=== PATIENT | male | born 1980 | race African-American/Black ===

== ENCOUNTER 2020-02-23 22:48 | Inpatient (IN) | payer BC, OTHER ==
--- NOTE | 2020-02-24 01:19 | ER Document Report ---
ED Medical Screen (RME) - General Chief Complaint: Chest Pain Stated Complaint: CHEST PAIN Time Seen by Provider: 02/24/20 01:18 Information source: Patient Notes: Patient presents complaining of anterior chest pain that started around 6 PM today. Patient denies any cough, shortness of breath, nausea or vomiting. Patient denies any dizziness. Patient states sitting up changes the intensity of his pain. Patient does report recent long distance travel to [place]. Patient without any chronic underlying medical problems. I have greeted and performed a rapid initial assessment of this patient. A comprehensive ED assessment and evaluation of the patient, analysis of test results and completion of the medical decision making process will be conducted by additional ED providers. TRAVEL OUTSIDE OF THE [place] IN LAST 30 DAYS: No - Related Data Allergies/Adverse Reactions: Stock Ragweed Pollen Mixture * Allergy (Verified 02/24/20 00:12) Past Medical History - Social History Frequency of alcohol use: None Drug Abuse: None - Immunizations Immunizations up to date: Yes Hx Diphtheria, Pertussis, Tetanus Vaccination: Yes Physical Exam - Vital signs Vitals: Temp Pulse Resp BP Pulse Ox 98.6 F 97 14 162/88 H 97 02/23/20 23:22 02/23/20 23:22 02/23/20 23:22 02/23/20 23:22 02/23/20 23:22 - Respiratory Respiratory status: No respiratory distress Chest status: Tender Breath sounds: Normal Chest palpation: Normal. No: Tender - Cardiovascular Rhythm: Regular Heart sounds: S1 appreciated, S2 appreciated Course - Vital Signs Vital signs: Temp Pulse Resp BP Pulse Ox 98.6 F 97 14 162/88 H 97 02/23/20 23:22 02/23/20 23:22 02/23/20 23:22 02/23/20 23:22 02/23/20 23:22
--- NOTE | 2020-02-24 03:03 | RADIOLOGY REPORT (SQ) ---
EXAM DESCRIPTION: XR CHEST 2 VIEWS COMPLETED DATE/TME: 02/24/2020 00:00 CLINICAL HISTORY: 39 years, Male, PAIN COMPARISON: None. NUMBER OF VIEWS: 2 TECHNIQUE: 2 views of the chest LIMITATIONS: None. FINDINGS: The heart size is normal. There is a moderate to large right-sided pneumothorax, with 7.1 cm of pleural separation at the right lung apex. There is no mediastinal shift at this time. The lungs are clear. IMPRESSION: Moderate to large right-sided pneumothorax, as above copyright 2011 [employer]- All Rights Reserved
--- NOTE | 2020-02-24 03:15 | ER Document Report ---
Doctor's Note Notes: 02/24/20 03:14 I received a call from Dr. Cintron, the radiologist. Was informed that the patient had a right pneumothorax. Patient brought to room 15. Notified Dr. Hinson.
[2020-02-24 03:20] LABS: ABSOLUTE EOSINOPHILS # (AUTO) 0.2 10^3/uL (0.0-0.6); ABSOLUTE LYMPHOCYTES (AUTO) 1.5 10^3/uL (0.5-4.7); ABSOLUTE MONOCYTES (AUTO) 0.8 10^3/uL (0.1-1.4); ABSOLUTE NEUT (AUTO) 6.7 10^3/uL (1.7-8.2); BASOPHILS % (AUTO) 0.3 % (0-2); EOSINOPHILS % (AUTO) 2.5 % (0-6); HEMATOCRIT 42.2 % (37.9-51.0); HEMOGLOBIN 14.8 g/dL (13.5-17.0); LYMPHOCYTES % (AUTO) 15.9 % (13-45); MEAN CORPUSCULAR HEMOGLOBIN 32.3 pg (27.0-33.4); MEAN CORPUSCULAR VOLUME 92 fl (80-97); MONOCYTES % (AUTO) 8.3 % (3-13); PLATELET COUNT 223 10^3/uL (150-450); RED BLOOD COUNT 4.58 10^6/uL (4.35-5.55); RED CELL DISTRIBUTION WIDTH 12.5 % (11.5-14.0); TOTAL CELLS COUNTED % (AUTO) 100 %; WHITE BLOOD COUNT 9.2 10^3/uL (4.0-10.5)
[2020-02-24] MEDS ORDERED: LIDOCAINE 1%/EPINEPHRINE INJ 20 ML VIAL INJ ONE (03:24)
[2020-02-24 03:34] LABS: ALBUMIN 4.3 g/dL (3.5-5.0); ALKALINE PHOSPHATASE 59 U/L (38-126); ANION GAP 7 (5-19); ASPARTATE AMINO TRANSFERASE 30 U/L (17-59); BILIRUBIN,DIRECT 0.2 mg/dL (0.0-0.4); BILIRUBIN,TOTAL 0.7 mg/dL (0.2-1.3); BLOOD UREA NITROGEN 10 mg/dL (7-20); CALCIUM 9.4 mg/dL (8.4-10.2); CARBON DIOXIDE 28 mmol/L (22-30); CHLORIDE 106 mmol/L (98-107); GLUCOSE 99 mg/dL (75-110); POTASSIUM 4.4 mmol/L (3.6-5.0); TOTAL PROTEIN 7.5 g/dL (6.3-8.2)
--- NOTE | 2020-02-24 04:06 | ER Document Report ---
ED General - General Chief Complaint: Chest Pain Stated Complaint: CHEST PAIN Time Seen by Provider: 02/24/20 01:18 Notes: 39-year-old male no significant past medical history presents with approximately 6 hours of sudden onset persistent right second mid chest pain that started while he was walking down some stairs and feels like it is worse every time he takes a hard step. Patient denies any shortness of breath, lightheadedness, syncope, prior episodes, trauma, lower extremity edema or pain, DVT/PE/hypercoagulability history, family history, recent trauma/surgery/immobilization, cancer history, cough, hemoptysis, fever, bleeding diatheses, hepatic or renal history, drug use, exertional chest pain, cardiac history, hypertension/diabetes/hyperlipidemia TRAVEL OUTSIDE OF THE [place] IN LAST 30 DAYS: No - Related Data Allergies/Adverse Reactions: Stock Ragweed Pollen Mixture * Allergy (Verified 02/24/20 00:12) Past Medical History - General Information source: Patient - Social History Smoking Status: Current Every Day Smoker Frequency of alcohol use: None Drug Abuse: None Family History: Other - asthma - Immunizations Immunizations up to date: Yes Hx Diphtheria, Pertussis, Tetanus Vaccination: Yes Review of Systems - Review of Systems Notes: REVIEW OF SYSTEMS: CONSTITUTIONAL : Denies fever, chills, or sweats. EENT: Denies recent cold/sinus symptoms, denies throat pain CARDIOVASCULAR: + chest pain, -BESSY RESPIRATORY: Denies cough, denies shortness of breath. GASTROINTESTINAL: Denies abdominal pain, nausea/vomiting. GENITOURINARY: Denies difficulty urinating, painful urination. MUSCULOSKELETAL: Denies neck pain, back pain. SKIN: Denies rash or skin lesions. HEMATOLOGIC : Denies easy bruising or bleeding. LYMPHATIC: Denies swollen, enlarged glands. NEUROLOGICAL: Denies headache, denies change in gait. PSYCHIATRIC: Denies anxiety or stress or depression. Physical Exam - Vital signs Vitals: Temp Pulse Resp BP Pulse Ox 98.6 F 97 14 162/88 H 97 02/23/20 23:22 02/23/20 23:22 02/23/20 23:22 02/23/20 23:22 02/23/20 23:22 - Notes Notes: PHYSICAL EXAMINATION: GENERAL: Well-appearing, well-nourished tall young adult male lying comfortably in stretcher in no acute distress. HEAD: Atraumatic, normocephalic. EYES: Pupils equal round and appropriate constriction, sclera anicteric, conju nctiva are normal. ENT: nares patent, moist mucous membranes. NECK: Normal range of motion, supple without lymphadenopathy LUNGS: Clear breath sounds on left, no breath sounds on the right, normal respiratory rate and effort, speaking in full sentences HEART: Regular rate and rhythm without murmurs ABDOMEN: Soft, nontender, no guarding, no masses EXTREMITIES: Normal range of motion, no pitting or edema. No cyanosis. NEUROLOGICAL: Awake, alert, conversing appropriately, moves all extremities spontaneously. PSYCH: Normal mood, normal affect. SKIN: Warm, Dry, normal turgor, no rashes or lesions noted. Course - Re-evaluation Re-evalutation: 02/24/20 04:05 Patient with pleuritic chest pain after travel but PERC negative, absent breath sounds on right, found to have spontaneous pneumothorax on chest x-ray. This is consistent with patient's symptoms. Patient's vital signs are normal, no respiratory distress, no hemodynamic instability. Patient on monitor and on 100% nonrebreather mask. Will place a pigtail catheter on the right and consult surgery for observation. 02/24/20 06:13 Place an 8 Malaysian right chest tube without complication which patient tolerated well. Pneumothorax confirmed to be decreased on postprocedural film and catheter in place. Patient's vitals continue to be stable. Morphine ordered for pain. Discussed case with Dr. Rivas who has accepted patient to surgical floor and will be seeing patient shortly. - Vital Signs Vital signs: Temp Pulse Resp BP Pulse Ox 97.9 F 66 22 H 140/98 H 100 02/24/20 03:20 02/24/20 03:20 02/24/20 05:41 02/24/20 05:31 02/24/20 05:41 - Laboratory Result Diagrams: 02/24/20 03:01 02/24/20 03:01 - EKG Interpretation by Me Additional EKG results interpreted by me: 02/24/20 06:16 Heart rate 66, sinus rhythm, no significant ST elevations or depressions, nonspecific T wave abnormalities, QTc 407 Procedures - Chest Tube Right Time completed: 05:20 Consent obtained: Yes Chest tube pre-insertion: Sterile PPE donned, Chloraprep applied Size of Malaysian Tube (cm): 8 Anesthetic type: 1% Lidocaine w/epi mL's of anesthetic: 20 Chest tube post-insertion: Air soto heard, Sutured, Position confirmed w/ CXR, Water seal, Low intermittent suction Number of attempts: 1 Complications: No Discharge - Discharge Clinical Impression: Pneumothorax Qualifiers: Pneumothorax type: spontaneous, primary Qualified Code(s): J93.11 - Primary spontaneous pneumothorax Disposition: ADMITTED INPATIENT Admitting Provider: Surgicalist - [facility] Admitted: Surgical Floor
[2020-02-24] MEDS ORDERED: LORAZEPAM INJ 2 MG/1 ML VIAL IV ONE (04:43)
[2020-02-24] MEDS ORDERED: MORPHINE SULFATE 10 MG/ML INJ IV ONE (05:27)
--- NOTE | 2020-02-24 05:58 | RADIOLOGY REPORT (SQ) ---
EXAM DESCRIPTION: XR CHEST 1 VIEW COMPLETED DATE/TME: 02/24/2020 00:00 CLINICAL HISTORY: chest tube placement check COMPARISON: 02/24/2020 FINDINGS: Single frontal view of the chest. Tubes and lines: Interval placement of smallbore right chest tube. Cardiomediastinal silhouette: Stable Lungs: Small residual right-sided pneumothorax with significantly improved expansion and aeration of the right lung. No left-sided pneumothorax. No pleural effusion. Bones: Stable. Upper abdomen: Stable. IMPRESSION: 1. Interval placement of smallbore right-sided chest tube with significant decrease in size of now small right apical pneumothorax.
[2020-02-24] MEDS ORDERED: ONDANSETRON HCL INJ/PF 4 MG/2 ML SDV IV PRN (07:36)
--- NOTE | 2020-02-24 07:51 | PDOC H&P ---
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 The patient presented to the ER and was found to have a spontaneous pneumothorax. The patient had a small bore chest tube placed by the ER physician, which resolved his pneumothorax. Currently he denies any chest pain, shortness of breath, fevers, chills, nausea, vomiting, abdominal pain, headache, malaise, fatigue. The patient is a smoker. He denies any use of a vape pen, illegal drugs, or alcohol. This is his first occurrence of a spontaneous pneumothorax. He has no other significant medical problems. He does not take any medications at home. Past Medical History Medical History: None Past Surgical History Past Surgical History: Reports: None Social History Smoking Status: Current Every Day Smoker Frequency of Alcohol Use: None Hx Recreational Drug Use: No Hx Prescription Drug Abuse: No Family History Family History: Other - asthma Parental Family History Reviewed: Yes Children Family History Reviewed: Yes Sibling(s) Family History Reviewed.: Yes Medication/Allergy Home Medications: Ciprofloxacin HCl [Cipro 500 mg Tablet] 500 mg PO BID #20 tablet 11/05/12 No Home Medications 1 11/05/12 Cyclobenzaprine HCl [Flexeril 10 Mg Tablet] 10 mg PO TID #15 tablet 11/24/15 Oxycodone HCl/Acetaminophen [Percocet 5-325 mg Tablet] 1 - 2 tab PO ASDIR PRN #15 tablet 11/24/15 Allergies/Adverse Reactions: Stock Ragweed Pollen Mixture * Allergy (Verified 02/24/20 00:12) Review of Systems Constitutional: ABSENT: anorexia, chills, fatigue Eyes: ABSENT: visual disturbances Ears: ABSENT: hearing changes Cardiovascular: PRESENT: chest pain, dyspnea on exertion Respiratory: PRESENT: dyspnea. ABSENT: cough, hemoptysis, sputum Gastrointestinal: ABSENT: abdominal pain, bloating, dysphagia, hematemesis, hematochezia, melena, nausea, vomiting Genitourinary: ABSENT: dysuria Musculoskeletal: ABSENT: back pain Integumentary: ABSENT: lesions, pruritus, rash Neurological: ABSENT: confusion, convulsions, dizziness Psychiatric: ABSENT: anxiety, depression Endocrine: ABSENT: cold intolerance Hematologic/Lymphatic: ABSENT: easy bleeding, easy bruising Physical Exam Vital Signs: Temp Pulse Resp BP Pulse Ox 97.9 F 66 22 H 147/95 H 100 02/24/20 03:20 02/24/20 03:20 02/24/20 07:03 02/24/20 07:03 02/24/20 07:03 Intake & Output 02/23/20 02/24/20 02/25/20 06:59 06:59 06:59 Weight 98.2 kg General appearance: PRESENT: no acute distress Head exam: PRESENT: atraumatic, normocephalic Eye exam: PRESENT: EOMI, PERRLA. ABSENT: scleral icterus Mouth exam: PRESENT: moist, neck supple Neck exam: ABSENT: meningismus, tenderness, thyromegaly, tracheal deviation Respiratory exam: PRESENT: unlabored. ABSENT: tachypnea, wheezes Cardiovascular exam: ABSENT: tachycardia Vascular exam: PRESENT: normal capillary refill GI/Abdominal exam: PRESENT: soft. ABSENT: distended, firm, tenderness Rectal exam: PRESENT: deferred Extremities exam: ABSENT: clubbing Musculoskeletal exam: ABSENT: deformity Neurological exam: PRESENT: alert, awake, oriented to person, oriented to place, oriented to time, oriented to situation, CN II-XII grossly intact Psychiatric exam: ABSENT: agitated, anxious, depressed Focused psych exam: ABSENT: delusional Skin exam: ABSENT: cyanosis, erythema, jaundice Results Laboratory Results: 02/24/20 03:01 02/24/20 03:01 02/24/20 02/24/20 03:01 03:01 WBC 9.2 RBC 4.58 Hgb 14.8 Hct 42.2 MCV 92 MCH 32.3 MCHC 35.0 RDW 12.5 Plt Count 223 Seg Neutrophils % 73.0 Sodium 141.1 Potassium 4.4 Chloride 106 Carbon Dioxide 28 Anion Gap 7 BUN 10 Creatinine 1.15 Est GFR ( Amer) > 60 Glucose 99 Calcium 9.4 Total Bilirubin 0.7 AST 30 Alkaline Phosphatase 59 Total Protein 7.5 Albumin 4.3 02/24/20 03:01 Troponin I < 0.012 Impressions: Chest X-Ray 02/24/20 00:00 IMPRESSION: 1. Interval placement of smallbore right-sided chest tube with significant decrease in size of now small right apical pneumothorax. Assessment & Plan - Diagnosis (1) Spontaneous pneumothorax Is this a current diagnosis for this admission?: Yes - Time Anticipated Discharge Disposition: Home, Self Care Anticipated Discharge Timeframe: within 72 hours - Plan Summary Plan Summary: This is a 39-year-old male with a spontaneous pneumothorax. The patient presented to the emergency department, was diagnosed, and a chest tube was inserted. The patient has had reinflation of his lung after chest tube placement. He has no air leak currently in his Pleur-evac. Plan for admission to the floor, pain control, aggressive pulmonary toilet, and monitoring of his chest x-ray. Maintain chest tube to suction for now. Hopefully resolution will be seen in 48 hours, and the chest tube could be removed. Repeat chest x-ray tomorrow. Further recommendations will be made depending on the patient's clinical course.
[2020-02-24] MEDS: KETOROLAC TROMETHAMINE INJ/PF 30 MG/1 ML SDV IV SCH ×3 (08:02→21:24)
--- NOTE | 2020-02-24 09:16 | EKG REPORT ---
SEVERITY:- ABNORMAL ECG - SINUS RHYTHM NONSPECIFIC T ABNORMALITIES, ANT-LAT LEADS : Confirmed by: Juanis Baron 24-Feb-2020 09:16:09
[2020-02-24] MEDS: FAMOTIDINE 20 MG TABLET PO SCH ×2 (10:15→21:24)
[2020-02-24] MEDS: ENOXAPARIN SODIUM INJ 40 MG/0.4 ML DISP.SYRIN SUBCUT SCH (10:16)
[2020-02-25] MEDS: KETOROLAC TROMETHAMINE INJ/PF 30 MG/1 ML SDV IV SCH ×3 (05:53→21:28)
--- NOTE | 2020-02-25 09:23 | RADIOLOGY REPORT (SQ) ---
EXAM DESCRIPTION: CHEST SINGLE VIEW IMAGES COMPLETED DATE/TIME: 02/25/2020 8:27 am REASON FOR STUDY: PTX COMPARISON: None. EXAM PARAMETERS: NUMBER OF VIEWS: One view. TECHNIQUE: An AP view of the chest was obtained. RADIATION DOSE: NA LIMITATIONS: None. FINDINGS: LUNGS AND PLEURA: Unchanged right apical pneumothorax that measures 1.4 cm (measured from the edge of the lung to the undersurface of the adjacent rib). There is no consolidation or pleural effusion. MEDIASTINUM AND HILAR STRUCTURES: No mediastinal or hilar contour abnormality. HEART AND VASCULAR STRUCTURES: The cardiac silhouette and pulmonary vasculature are within normal joseph its. BONES: No acute findings. HARDWARE: Unchanged position of the catheter that projects over the right 7th intercostal space. OTHER: No other finding. IMPRESSION: Unchanged position of the catheter that projects over the right 7th intercostal space. The right apical pneumothorax is unchanged in size. TECHNICAL DOCUMENTATION: JOB ID: [id number] 2010 [employer]- All Rights Reserved Reading location - IP/workstation name: [email or web address]
--- NOTE | 2020-02-25 10:02 | PDOC PROGRESS REPORT ---
Subjective Progress Note for:: 02/25/20 Subjective:: feels well, no sob Reason For Visit: SPONTANEOUS PNEUMOTHORAX Physical Exam Vital Signs: Temp Pulse Resp BP Pulse Ox 98.0 F 94 12 137/82 H 100 02/25/20 08:00 02/25/20 08:00 02/25/20 08:00 02/25/20 08:00 02/25/20 08:00 Intake & Output 02/24/20 02/25/20 02/26/20 06:59 06:59 06:59 Intake Total 803 Balance 803 Weight 98.2 kg 87.2 kg General appearance: PRESENT: no acute distress Head exam: PRESENT: normocephalic Eye exam: PRESENT: EOMI Ear exam: PRESENT: normal external ear exam Mouth exam: PRESENT: moist Neck exam: PRESENT: full ROM Respiratory exam: PRESENT: clear to auscultation [email or web address] Cardiovascular exam: PRESENT: RRR Pulses: PRESENT: normal radial pulses, normal femoral pulses Breast: PRESENT: Normal GI/Abdominal exam: PRESENT: soft Rectal exam: PRESENT: deferred Extremities exam: PRESENT: clubbing Musculoskeletal exam: PRESENT: full ROM Neurological exam: PRESENT: alert, awake, oriented to person, oriented to place Psychiatric exam: PRESENT: appropriate affect Skin exam: PRESENT: dry Results Laboratory Results: 02/24/20 03:01 02/24/20 03:01 02/24/20 03:01 Troponin I < 0.012 Impressions: Chest X-Ray 02/25/20 06:00 IMPRESSION: Unchanged position of the catheter that projects over the right 7th intercostal space. The right apical pneumothorax is unchanged in size. Assessment & Plan - Time Anticipated Discharge Disposition: Home, Self Care Anticipated Discharge Timeframe: within 24 hours - Plan Summary Plan Summary: Patient is spontaneous pneumothorax treated with a small bore chest catheter in the emergency room yesterday. Repeat chest x-ray this morning shows no significant change and there is no evidence of a leak on his chest tube suction. Will place the patient on waterseal and repeat a chest x-ray in 4 hours.
[2020-02-25] MEDS: FAMOTIDINE 20 MG TABLET PO SCH ×2 (11:39→21:28)
[2020-02-25] MEDS: ENOXAPARIN SODIUM INJ 40 MG/0.4 ML DISP.SYRIN SUBCUT SCH (11:39)
--- NOTE | 2020-02-25 15:09 | RADIOLOGY REPORT (SQ) ---
EXAM DESCRIPTION: CHEST SINGLE VIEW IMAGES COMPLETED DATE/TIME: 02/25/2020 1:27 pm REASON FOR STUDY: PNEUMOTHORAX COMPARISON: 02/25/2020 EXAM PARAMETERS: NUMBER OF VIEWS: One view. TECHNIQUE: Single frontal radiographic view of the chest acquired. RADIATION DOSE: NA LIMITATIONS: None. FINDINGS: LUNGS AND PLEURA: Unchanged right apical pneumothorax. MEDIASTINUM AND HILAR STRUCTURES: No masses. Contour normal. HEART AND VASCULAR STRUCTURES: Heart normal in size. Normal vasculature. BONES: No acute findings. HARDWARE: Small bore catheter remains in place in the right chest. OTHER: No other significant finding. IMPRESSION: There is no significant interval change. TECHNICAL DOCUMENTATION: JOB ID: [id number] 2010 [employer]- All Rights Reserved Reading location - IP/workstation name: [email or web address]
--- NOTE | 2020-02-25 17:40 | Progress Note ---
Provider Note Provider Note: pts f/u cxr showed no increased ptx will dc ct now repeat cxr in am if ok, will dc home
[2020-02-26] MEDS: KETOROLAC TROMETHAMINE INJ/PF 30 MG/1 ML SDV IV SCH ×3 (07:13→22:52)
[2020-02-26] MEDS: ENOXAPARIN SODIUM INJ 40 MG/0.4 ML DISP.SYRIN SUBCUT SCH (09:56)
[2020-02-26] MEDS: FAMOTIDINE 20 MG TABLET PO SCH ×2 (09:56→21:50)
[2020-02-26] MEDS ORDERED: LIDOCAINE 1% INJ-PF (10 MG/ML) 30 ML SDV ONE (10:28)
[2020-02-26] MEDS ORDERED: LIDOCAINE 1% INJ-PF (10 MG/ML) 30 ML SDV INJ PRN (10:50)
--- NOTE | 2020-02-26 11:21 | RADIOLOGY REPORT (SQ) ---
EXAM DESCRIPTION: CHEST SINGLE VIEW IMAGES COMPLETED DATE/TIME: 02/26/2020 7:56 am REASON FOR STUDY: PTX COMPARISON: Chest radiograph 02/25/2020 NUMBER OF VIEWS: One view. TECHNIQUE: Single frontal radiographic view of the chest acquired. LIMITATIONS: None. FINDINGS: LUNGS AND PLEURA: Interval removal of right pleural catheter with recurrence of moderate-s ized right pneumothorax measuring approximately 6 cm at the apex. MEDIASTINUM AND HILAR STRUCTURES: No mediastinal shift. No masses. Contour normal. HEART AND VASCULAR STRUCTURES: Heart normal in size. Normal vasculature. BONES: No acute findings. HARDWARE: None in the chest. OTHER: No other significant finding. IMPRESSION: Interval removal of right pleural catheter with recurrence of moderate-sized right pneum othorax. No mediastinal shift. COMMENT: Findings were discovered at 1112 hours 02/26/2020 and communicated via phone to Dr. Rob randall 1114 hours 02/26/2020. He expressed understanding of the findings. TECHNICAL DOCUMENTATION: JOB ID: [id number] 2010 [employer]- All Rights Reserved Reading location - IP/workstation name: [email or web address]
[2020-02-26] MEDS ORDERED: MORPHINE SULFATE 10 MG/ML INJ ONE (12:50)
[2020-02-26] MEDS: MORPHINE SULFATE 10 MG/ML INJ IV PRN ×2 (12:53→18:25)
--- NOTE | 2020-02-26 12:55 | Operative Report ---
Nonrecallable Operative Report DATE OF SURGERY: 02/26/20 PREOPERATIVE DIAGNOSIS: Recurrent right sided pneumothorax POSTOPERATIVE DIAGNOSIS: Same as above OPERATION: Insertion of the anterior, superior tube thoracostomy SURGEON: WAYNE HOLLOWAY ANESTHESIA: Local TISSUE REMOVED OR ALTERED: None COMPLICATIONS: None apparent ESTIMATED BLOOD LOSS: Minimal PROCEDURE: Drains/implants 14 Yoruba anterior chest tube. Procedure in detail: After informed consent was obtained from the patient, he was sat in the upright position in the hospital room. The anterior chest was prepped and draped in a normal sterile fashion. 1% lidocaine was used to infiltrate the skin of the anterior right upper chest. An incision was created in the chest wall, at the midclavicular line. Dissection was carried down to the chest wall using hemostats. A 14 Yoruba catheter was inserted into the chest, over a hollow trocar. A soto of air was noted upon entry into the chest. The catheter was directed superiorly. The catheter was sutured to the chest wall using 0 silk suture. The catheter was attached to a Pleur-evac, where a small air leak was noted. A dressing was placed, and the procedure was concluded. All sponge, instrument, and needle counts were correct. Condition: Stable.
--- NOTE | 2020-02-26 13:00 | PDOC PROGRESS REPORT ---
Subjective Progress Note for:: 02/26/20 Subjective:: 39-year-old male admitted with a spontaneous pneumothorax. The patient had a right lateral, inferior small bore chest tube placed percutaneously in the ER. The chest tube was removed yesterday. Since that time, the patient has reported an increase in right-sided chest wall pain. He denies any shortness of breath, fevers, chills, nausea, vomiting, abdominal pain, dizziness, cough, fatigue, malaise, headache. Reason For Visit: SPONTANEOUS PNEUMOTHORAX Physical Exam Vital Signs: Temp Pulse Resp BP Pulse Ox 97.8 F 55 L 19 140/68 H 96 02/26/20 10:00 02/26/20 08:00 02/26/20 08:00 02/26/20 08:00 02/26/20 08:00 Intake & Output 02/25/20 02/26/20 02/27/20 06:59 06:59 06:59 Intake Total 803 720 Balance 803 720 Weight 87.2 kg 88.2 kg General appearance: PRESENT: no acute distress, cooperative. ABSENT: disheveled Head exam: PRESENT: atraumatic, normocephalic Eye exam: PRESENT: EOMI, PERRLA. ABSENT: scleral icterus Mouth exam: PRESENT: moist, neck supple Neck exam: ABSENT: meningismus, tenderness, thyromegaly, tracheal deviation Respiratory exam: PRESENT: unlabored. ABSENT: tachypnea, wheezes Cardiovascular exam: ABSENT: tachycardia GI/Abdominal exam: PRESENT: soft. ABSENT: distended, tenderness Rectal exam: PRESENT: deferred Extremities exam: ABSENT: clubbing Musculoskeletal exam: ABSENT: deformity Neurological exam: PRESENT: alert, awake, oriented to person, oriented to place, oriented to time, oriented to situation, CN II-XII grossly intact Psychiatric exam: ABSENT: agitated, anxious, depressed Focused psych exam: ABSENT: delusional Skin exam: ABSENT: cyanosis, erythema, jaundice Results Laboratory Results: 02/24/20 03:01 02/24/20 03:01 02/24/20 03:01 Troponin I < 0.012 Impressions: Chest X-Ray 02/26/20 06:00 IMPRESSION: Interval removal of right pleural catheter with recurrence of moderate-sized right pneumothorax. No mediastinal shift. Assessment & Plan - Diagnosis (1) Spontaneous pneumothorax Is this a current diagnosis for this admission?: Yes - Time Anticipated Discharge Disposition: Home, Self Care Anticipated Discharge Timeframe: unknown - Plan Summary Plan Summary: This is a 39-year-old male with a spontaneous pneumothorax. His pneumothorax has been treated with a small caliber lateral/inferior chest tube, placed by the emergency room physician. The tube was removed yesterday, because there was no air leak noted. Today, the pneumothorax has reaccumulated. I have recommended placement of a larger bore, anterior chest tube. I have discussed the risks and the benefits of the operation, and the patient has agreed. Informed consent o btained, and all questions answered. I plan to perform form at the bedside today. If this tube thoracostomy fails, the patient will require VATS with mechanical pleurodesis. Further treatments will be determined based on the patient's clinical course.
--- NOTE | 2020-02-26 14:22 | RADIOLOGY REPORT (SQ) ---
EXAM DESCRIPTION: CHEST SINGLE VIEW IMAGES COMPLETED DATE/TIME: 02/26/2020 12:57 pm REASON FOR STUDY: chest tube insertion COMPARISON: 02/26/2020 at 0748 hours. EXAM PARAMETERS: NUMBER OF VIEWS: One view. TECHNIQUE: Single frontal radiographic view of the chest acquired. RADIATION DOSE: NA LIMITATIONS: None. FINDINGS: LUNGS AND PLEURA: There is a tiny residual right apical pneumothorax. No focal consolidat ion. MEDIASTINUM AND HILAR STRUCTURES: No masses. Contour normal. HEART AND VASCULAR STRUCTURES: Heart normal in size. Normal vasculature. BONES: No acute findings. HARDWARE: Small in caliber tubing projects over the right chest wall likely chest tube in place. OTHER: No other significant finding. IMPRESSION: Tiny residual right apical pneumothorax. TECHNICAL DOCUMENTATION: JOB ID: [id number] 2010 [employer]- All Rights Reserved Reading location - IP/workstation name: [email or web address]
[2020-02-26] MEDS: OXYCODONE-ACETAMINOPHEN 5-325 MG TABLET PO PRN (19:40)
[2020-02-26] MEDS ORDERED: MORPHINE SULFATE 10 MG/ML INJ IV ONE (21:00)
[2020-02-27] MEDS: KETOROLAC TROMETHAMINE INJ/PF 30 MG/1 ML SDV IV SCH ×3 (06:07→22:57)
--- NOTE | 2020-02-27 09:47 | RADIOLOGY REPORT (SQ) ---
EXAM DESCRIPTION: CHEST SINGLE VIEW IMAGES COMPLETED DATE/TIME: 02/27/2020 6:26 am REASON FOR STUDY: PTX COMPARISON: 02/26/2020 EXAM PARAMETERS: NUMBER OF VIEWS: One view. TECHNIQUE: Single frontal radiographic view of the chest acquired. RADIATION DOSE: NA LIMITATIONS: None. FINDINGS: LUNGS AND PLEURA: No residual right pneumothorax. Lungs are hyperinflated. No focal cons olidation or pleural effusion. MEDIASTINUM AND HILAR STRUCTURES: No masses. Contour normal. HEART AND VASCULAR STRUCTURES: Heart normal in size. Normal vasculature. BONES: No acute findings. HARDWARE: None in the chest. OTHER: No other significant finding. IMPRESSION: No residual right pneumothorax. No acute cardiopulmonary disease. TECHNICAL DOCUMENTATION: JOB ID: [id number] 2010 [employer]- All Rights Reserved Reading location - IP/workstation name: [email or web address]
[2020-02-27] MEDS: ENOXAPARIN SODIUM INJ 40 MG/0.4 ML DISP.SYRIN SUBCUT SCH (09:54)
[2020-02-27] MEDS: FAMOTIDINE 20 MG TABLET PO SCH ×2 (09:54→22:59)
--- NOTE | 2020-02-27 13:01 | PDOC PROGRESS REPORT ---
Subjective Progress Note for:: 02/27/20 Subjective:: 39-year-old male admitted with a spontaneous pneumothorax. The patient had recurrence of his PTX after chest tube removal. He had placement of an anterior/superior tube thoracostomy yesterday. He denies any shortness of breath, fevers, chills, nausea, vomiting, abdominal pain, dizziness, cough, fatigue, malaise, headache. Reason For Visit: SPONTANEOUS PNEUMOTHORAX Physical Exam Vital Signs: Temp Pulse Resp BP Pulse Ox 98.2 F 58 L 16 133/78 H 99 02/27/20 08:13 02/27/20 08:13 02/27/20 08:13 02/27/20 08:13 02/27/20 08:13 Intake & Output 02/26/20 02/27/20 02/28/20 06:59 06:59 06:59 Intake Total 720 865 Balance 720 865 Weight 88.2 kg 68.1 kg Exam: General appearance: PRESENT: no acute distress, cooperative. ABSENT: disheveled Head exam: PRESENT: atraumatic, normocephalic Eye exam: PRESENT: EOMI, PERRLA. ABSENT: scleral icterus Mouth exam: PRESENT: moist, neck supple Neck exam: ABSENT: meningismus, tenderness, thyromegaly, tracheal deviation Respiratory exam: PRESENT: unlabored, other - No air leak, no fluid output, tube currently to suction. ABSENT: tachypnea, wheezes Cardiovascular exam: ABSENT: tachycardia GI/Abdominal exam: PRESENT: soft. ABSENT: distended, tenderness Rectal exam: PRESENT: deferred Extremities exam: ABSENT: clubbing Musculoskeletal exam: ABSENT: deformity Neurological exam: PRESENT: alert, awake, oriented to person, oriented to place, oriented to time, oriented to situation, CN II-XII grossly intact Psychiatric exam: ABSENT: agitated, anxious, depressed Focused psych exam: ABSENT: delusional Skin exam: ABSENT: cyanosis, erythema, jaundice Results Laboratory Results: 02/24/20 03:01 02/24/20 03:01 02/24/20 03:01 Troponin I < 0.012 Impressions: Chest X-Ray 02/27/20 06:00 IMPRESSION: No residual right pneumothorax. No acute cardiopulmonary disease. Assessment & Plan - Diagnosis (1) Spontaneous pneumothorax Is this a current diagnosis for this admission?: Yes - Time Anticipated Discharge Disposition: Home, Self Care Anticipated Discharge Timeframe: within 48 hours - Plan Summary Plan Summary: This is a 39-year-old male with a spontaneous pneumothorax. His pneumothorax was treated with a small caliber lateral/inferior chest tube, placed by the emergency room physician. The tube was removed, and the pneumothorax reaccumulated. Yesterday, I placed a larger bore anterior chest tube. Today there is no appreciable air leak. The fluid in the tube tidals with inspiration. The lung is expanded on todays chest x-ray. Hopefully the tube can be removed tomorrow. If this tube thoracostomy fails, the patient will require VATS with mechanical pleurodesis. Further treatments will be determined based on the patient's clinical course.
[2020-02-28] MEDS: KETOROLAC TROMETHAMINE INJ/PF 30 MG/1 ML SDV IV SCH ×3 (05:57→21:36)
--- NOTE | 2020-02-28 08:39 | RADIOLOGY REPORT (SQ) ---
EXAM DESCRIPTION: CHEST SINGLE VIEW IMAGES COMPLETED DATE/TIME: 02/28/2020 8:16 am REASON FOR STUDY: PTX COMPARISON: 02/27/2020 EXAM PARAMETERS: NUMBER OF VIEWS: One view. TECHNIQUE: Single frontal radiographic view of the chest acquired. RADIATION DOSE: NA LIMITATIONS: None. FINDINGS: LUNGS AND PLEURA: Hyperexpansion. No pneumothorax. No consolidation or effusions. MEDIASTINUM AND HILAR STRUCTURES: No masses. Contour normal. HEART AND VASCULAR STRUCTURES: Heart normal in size. Normal vasculature. BONES: No acute findings. HARDWARE: None in the chest. OTHER: No other significant finding. IMPRESSION: No interval change. Hyperexpansion. No pneumothorax. TECHNICAL DOCUMENTATION: JOB ID: [id number] 2010 [employer]- All Rights Reserved Reading location - IP/workstation name: [email or web address]
[2020-02-28] MEDS: ENOXAPARIN SODIUM INJ 40 MG/0.4 ML DISP.SYRIN SUBCUT SCH (09:12)
[2020-02-28] MEDS: FAMOTIDINE 20 MG TABLET PO SCH ×2 (09:13→21:37)
[2020-02-29] MEDS: KETOROLAC TROMETHAMINE INJ/PF 30 MG/1 ML SDV IV SCH (05:29)
--- NOTE | 2020-02-29 08:43 | RADIOLOGY REPORT (SQ) ---
EXAM DESCRIPTION: CHEST 2 VIEWS IMAGES COMPLETED DATE/TIME: 02/29/2020 8:11 am REASON FOR STUDY: Interval change in right lung COMPARISON: 02/28/2020 EXAM PARAMETERS: NUMBER OF VIEWS: two views TECHNIQUE: Digital Frontal and Lateral radiographic views of the chest acquired. RADIATION DOSE: NA LIMITATIONS: none FINDINGS: LUNGS AND PLEURA: An ovoid shaped density adjacent to the right parahilar region, in the right upper lung, may be on the basis of artifact. The left lung remains clear. Hyperexpansion of t he lungs. No pneumothorax or pleural effusion. MEDIASTINUM AND HILAR STRUCTURES: No masses or contour abnormalities. HEART AND VASCULAR STRUCTURES: Heart normal size. No evidence for failure. BONES: No acute findings. HARDWARE: None in the chest. OTHER: No other significant finding. IMPRESSION: 1. Since the prior study dated 02/28/2020, an ovoid shaped density adjacent to the right parahilar region, in the right upper lung, may represent artifact. A repeat PA film of the chest is suggested. 2. No other significant interval changes. TECHNICAL DOCUMENTATION: JOB ID: [id number] 2010 [employer]- All Rights Reserved Reading location - IP/workstation name: [email or web address]
[2020-02-29] MEDS: FAMOTIDINE 20 MG TABLET PO SCH ×3 (09:53→21:42)
[2020-02-29] MEDS: ENOXAPARIN SODIUM INJ 40 MG/0.4 ML DISP.SYRIN SUBCUT SCH ×2 (09:53→09:56)
--- NOTE | 2020-02-29 10:00 | PDOC PROGRESS REPORT ---
Subjective Progress Note for:: 02/29/20 Subjective:: No complaints. No shortness of breath. Reason For Visit: SPONTANEOUS PNEUMOTHORAX Physical Exam Vital Signs: Temp Pulse Resp BP Pulse Ox 97.9 F 91 17 155/89 H 100 02/28/20 23:22 02/28/20 23:22 02/28/20 23:22 02/28/20 23:22 02/28/20 23:22 Intake & Output 02/28/20 02/29/20 03/01/20 06:59 06:59 06:59 Intake Total 1340 1020 Balance 1340 1020 Weight 68.1 kg 68.1 kg General appearance: PRESENT: no acute distress, cooperative Respiratory exam: PRESENT: clear to auscultation jacoby, other - Chest tube in place. No air leak seen in the Pleur-evac. Cardiovascular exam: PRESENT: RRR Results Laboratory Results: 02/24/20 03:01 02/24/20 03:01 02/24/20 03:01 Troponin I < 0.012 Impressions: Chest X-Ray 02/29/20 07:00 IMPRESSION: 1. Since the prior study dated 02/28/2020, an ovoid shaped density adjacent to the right parahilar region, in the right upper lung, may represent artifact. A repeat PA film of the chest is suggested. 2. No other significant interval changes. Assessment & Plan - Diagnosis (1) Spontaneous pneumothorax Is this a current diagnosis for this admission?: Yes Plan: Chest x-ray on waterseal demonstrates a questionable abnormality and radiology r ecommended repeat PA view which we will obtain. If there is no evidence of a pneumothorax will pull the chest tube today and repeat chest x-ray late this afternoon and if okay will plan discharge late afternoon. - Time Anticipated Discharge Disposition: Home, Self Care Anticipated Discharge Timeframe: within 48 hours
--- NOTE | 2020-02-29 11:48 | RADIOLOGY REPORT (SQ) ---
EXAM DESCRIPTION: CHEST SINGLE VIEW IMAGES COMPLETED DATE/TIME: 02/29/2020 10:19 am REASON FOR STUDY: f/u cxr abnl COMPARISON: 02/29/2020. EXAM PARAMETERS: NUMBER OF VIEWS: One view. TECHNIQUE: Single frontal radiographic view of the chest acquired. RADIATION DOSE: NA LIMITATIONS: None. FINDINGS: LUNGS AND PLEURA: There is a persistent faint density in the mid right lung. MEDIASTINUM AND HILAR STRUCTURES: No masses. Contour normal. HEART AND VASCULAR STRUCTURES: Heart normal in size. Normal vasculature. BONES: No acute findings. HARDWARE: None in the chest. OTHER: No other significant finding. IMPRESSION: PERSISTENT FAINT DENSITY IN THE MID RIGHT LUNG. MAY REPRESENT MILD ATELECTASIS. DEVELO PING INFILTRATE LESS LIKELY BUT NOT EXCLUDED. TECHNICAL DOCUMENTATION: JOB ID: [id number] 2010 [email or web address]- All Rights Reserved Reading location - IP/workstation name: [email or web address]
[2020-02-29] MEDS: OXYCODONE-ACETAMINOPHEN 5-325 MG TABLET PO PRN (14:39)
--- NOTE | 2020-02-29 14:41 | PDOC PROGRESS REPORT ---
Subjective Progress Note for:: 02/29/20 Subjective:: No complaints. Reason For Visit: SPONTANEOUS PNEUMOTHORAX Physical Exam Vital Signs: Temp Pulse Resp BP Pulse Ox 97.6 F 73 20 151/86 H 100 02/29/20 07:55 02/29/20 07:55 02/29/20 07:55 02/29/20 07:55 02/29/20 07:55 Intake & Output 02/28/20 02/29/20 03/01/20 06:59 06:59 06:59 Intake Total 1340 1020 Balance 1340 1020 Weight 68.1 kg 68.1 kg Results Laboratory Results: 02/24/20 03:01 02/24/20 03:01 02/24/20 03:01 Troponin I < 0.012 Impressions: Chest X-Ray 02/29/20 07:00 IMPRESSION: 1. Since the prior study dated 02/28/2020, an ovoid shaped density adjacent to the right parahilar region, in the right upper lung, may represent artifact. A repeat PA film of the chest is suggested. 2. No other significant interval changes. Assessment & Plan - Diagnosis (1) Spontaneous pneumothorax Is this a current diagnosis for this admission?: Yes Plan: Repeat chest x-ray did not demonstrate any pneumothorax. Possible atelectasis. Therefore chest tube was removed without difficulty. Will obtain a chest x-ray early this evening. In the meantime if the patient were to develop any shortness of breath he was instructed to alert the nurses FREIDA. If his chest x- ray looks okay this evening, we will plan to discharge patient home. - Time Anticipated Discharge Disposition: Home, Self Care Anticipated Discharge Timeframe: within 24 hours
--- NOTE | 2020-02-29 20:15 | RADIOLOGY REPORT (SQ) ---
EXAM DESCRIPTION: [facility]Lex: XR CHEST 1 VIEW CLINICAL HISTORY: 39 years Male; f/u chest tube removal ; FINDINGS: AP chest at 1938. Since this morning at 1100, lungs are clear. No pneumothorax or pleural effusion. No atelectasis or infiltrate. Mediastinum is normal. IMPRESSION: 1. No acute findings.
[2020-02-29 20:53] VITALS: BP 155/82
--- NOTE | 2020-02-29 21:11 | PDOC DISCHARGE SUMMARY ---
General - Admit/Disc Date/PCP Admission Date/Primary Care Provider: 02/24/20 06:33 SURGICAL SURGICALIST Discharge Date: 02/29/20 - Discharge Diagnosis Final Diagnosis: Spontaneous right-sided pneumothorax - Assessment Summary: Patient underwent small bore chest tube placement in the ER and was subsequently admitted. He was doing well and his chest tube was removed however patient had recurrent symptoms and had a recurrent pneumothorax after chest tube removal therefore another chest tube was placed following which he had complete insufflation of his lung. His chest tube was eventually placed to waterseal and with no air leak and no recurrent pneumothorax, the chest tube was pulled. Several hours afterwards repeat chest x-ray demonstrated no recurrent pneumothorax. And patient was doing well and he is now being subsequently discharged home in good condition. He will follow-up at [facility] next week. He is to avoid strenuous activity for the next week. He is to avoid flying for the next 4 weeks. He is to call us immediately for any recurrent symptoms. In regards to his chest tube removal site I have asked him to keep the bandages on for the next 2 days and then remove them and take a shower and place a Band-Aid over it. If he were to noticed increasing redness or purulent drainage he is to call us immediately. He is to avoid smoking. No discharge medications. - Additional Information Resuscitation Status: Full Code Discharge Diet: As Tolerated Discharge Activity: Activity As Tolerated - Stay active but avoid strenuous activity. Incentive spirometry at home as instructed for the next week. Referrals: SURGICALIST,SURGICAL MD [Primary Care Provider] - Home Medications: No Home Medications 02/24/20 History of Present Illiness History of Present Illness: SAM BERNAL is a 39 year old male Physical Exam Vital Signs: Temp Pulse Resp BP Pulse Ox 98.1 F 79 17 155/82 H 100 02/29/20 20:00 02/29/20 20:00 02/29/20 20:00 02/29/20 20:00 02/29/20 20:00 Intake & Output 02/28/20 02/29/20 03/01/20 06:59 06:59 06:59 Intake Total 1340 1020 520 Balance 1340 1020 520 Weight 68.1 kg 68.1 kg Results Laboratory Results: WBC 9.2 10^3/uL (4.0-10.5) 02/24/20 03:01 RBC 4.58 10^6/uL (4.35-5.55) 02/24/20 03:01 Hgb 14.8 g/dL (13.5-17.0) 02/24/20 03:01 Hct 42.2 % (37.9-51.0) 02/24/20 03:01 MCV 92 fl (80-97) 02/24/20 03:01 MCH 32.3 pg (27.0-33.4) 02/24/20 03:01 MCHC 35.0 g/dL (32.0-36.0) 02/24/20 03:01 RDW 12.5 % (11.5-14.0) 02/24/20 03:01 Plt Count 223 10^3/uL (150-450) 02/24/20 03:01 Lymph % (Auto) 15.9 % (13-45) 02/24/20 03:01 [place] % (Auto) 8.3 % (3-13) 02/24/20 03:01 Eos % (Auto) 2.5 % (0-6) 02/24/20 03:01 Baso % (Auto) 0.3 % (0-2) 02/24/20 03:01 Absolute Neuts (auto) 6.7 10^3/uL (1.7-8.2) 02/24/20 03:01 Absolute Lymphs (auto) 1.5 10^3/uL (0.5-4.7) 02/24/20 03:01 Absolute Monos (auto) 0.8 10^3/uL (0.1-1.4) 02/24/20 03:01 Absolute Eos (auto) 0.2 10^3/uL (0.0-0.6) 02/24/20 03:01 Absolute Basos (auto) 0.0 10^3/uL (0.0-0.2) 02/24/20 03:01 Seg Neutrophils % 73.0 % (42-78) 02/24/20 03:01 D-Dimer < 0.27 ug/mL (0.00-0.50) 02/24/20 03:01 Sodium 141.1 mmol/L (137-145) 02/24/20 03:01 Potassium 4.4 mmol/L (3.6-5.0) 02/24/20 03:01 Chloride 106 mmol/L (98-107) 02/24/20 03:01 Carbon Dioxide 28 mmol/L (22-30) 02/24/20 03:01 Anion Gap 7 (5-19) 02/24/20 03:01 BUN 10 mg/dL (7-20) 02/24/20 03:01 Creatinine 1.15 mg/dL (0.52-1.25) 02/24/20 03:01 Est GFR ( Amer) > 60 (>60) 02/24/20 03:01 Est GFR (MDRD) Non-Af > 60 (>60) 02/24/20 03:01 Glucose 99 mg/dL (75-110) 02/24/20 03:01 Calcium 9.4 mg/dL (8.4-10.2) 02/24/20 03:01 Total Bilirubin 0.7 mg/dL (0.2-1.3) 02/24/20 03:01 Direct Bilirubin 0.2 mg/dL (0.0-0.4) 02/24/20 03:01 Neonat Total Bilirubin Not Reportable 02/24/20 03:01 Neonat Direct Bilirubin Not Reportable 02/24/20 03:01 Neonat Indirect Bili Not Reportable 02/24/20 03:01 AST 30 U/L (17-59) 02/24/20 03:01 ALT 28 U/L (<50) 02/24/20 03:01 Alkaline Phosphatase 59 U/L (38-126) 02/24/20 03:01 Troponin I < 0.012 ng/mL 02/24/20 03:01 Total Protein 7.5 g/dL (6.3-8.2) 02/24/20 03:01 Albumin 4.3 g/dL (3.5-5.0) 02/24/20 03:01 02/24/20 03:01 Troponin I < 0.012 Impressions: Chest X-Ray 02/24/20 00:00 IMPRESSION: Moderate to large right-sided pneumothorax, as above copyright 2011 [employer]- All Rights Reserved Chest X-Ray 02/24/20 00:00 IMPRESSION: 1. Interval placement of smallbore right-sided chest tube with significant decrease in size of now small right apical pneumothorax. Chest X-Ray 02/25/20 06:00 IMPRESSION: Unchanged position of the catheter that projects over the right 7th intercostal space. The right apical pneumothorax is unchanged in size. Chest X-Ray 02/25/20 13:00 IMPRESSION: There is no significant interval change. Chest X-Ray 02/26/20 00:00 IMPRESSION: Tiny residual right apical pneumothorax. Chest X-Ray 02/26/20 06:00 IMPRESSION: Interval removal of right pleural catheter with recurrence of moderate-sized right pneumothorax. No mediastinal shift. Chest X-Ray 02/27/20 06:00 IMPRESSION: No residual right pneumothorax. No acute cardiopulmonary disease. Chest X-Ray 02/28/20 00:00 IMPRESSION: No interval change. Hyperexpansion. No pneumothorax. Chest X-Ray 02/29/20 00:00 IMPRESSION: PERSISTENT FAINT DENSITY IN THE MID RIGHT LUNG. MAY REPRESENT MILD ATELECTASIS. DEVELOPING INFILTRATE LESS LIKELY BUT NOT EXCLUDED. Chest X-Ray 02/29/20 07:00 IMPRESSION: 1. Since the prior study dated 02/28/2020, an ovoid shaped density adjacent to the right parahilar region, in the right upper lung, may represent artifact. A repeat PA film of the chest is suggested. 2. No other significant interval changes. Chest X-Ray 02/29/20 19:00 IMPRESSION: 1. No acute findings.
== END 2020-02-29 22:05 | disposition home or self-care (01) | DRG 201 ==
LOC: ER 22:48 → EH 02-24 06:33 → 4W 02-24 12:13
PROVIDERS: ADMIT Surgery; ATTEND Surgery
PROC: 0W9930Z Drainage of Right Pleural Cavity with Drainage Device, Percutaneous Approach (ICD-10-PCS; 2020-02-24)
PROC: 0W9930Z Drainage of Right Pleural Cavity with Drainage Device, Percutaneous Approach (ICD-10-PCS; principal; 2020-02-26)
DX: J93.11 Primary spontaneous pneumothorax (principal); F17.210 Nicotine dependence, cigarettes, uncomplicated
CPT/HCPCS: 36415; 71045; 71046; 80053; 84484; 85025; 85379; 93005; 93010; 94799; 96374; 96375; 99285; G0378; J1650; J1885; J2060; J2270; J2405; J3490